=== PATIENT | male | born 1985 | race Caucasian/White ===

== ENCOUNTER 2023-03-04 22:51 | Emergency (ER) | payer OTHER ==
[~2023-03-04 22:51] MED LIST: Iopamidol 300 61% 100 ML VIAL FS ONE
[2023-03-04] MEDS ORDERED: Famotidine/PF 20 mg/2ml Vial ONE (23:24)
[2023-03-04] MEDS ORDERED: Ketorolac Tromethamine 30 MG (1 mL) VIAL ONE (23:24)
[2023-03-04] MEDS ORDERED: Dicyclomine 20 MG TAB ONE (23:27)
[2023-03-04 23:38] LABS: #Eosinphils 0.1 10x3/uL (0.0-0.5); #Monocytes 0.5 10x3/uL (0.0-1.1); #Neutrophils 6.2 10x3/uL (1.5-8.4); %Basophils 0.3 % (0.0-2.0); %Eosinophils 0.7 % (0.0-6.0); %Lymphocytes 21.1 % (18.0-47.0); %Monocytes 5.9 % (0.0-10.0); %Neutrophils 71.7 % (40.0-75.0); Hematocrit 37.4 % (38.8-50.0); Hemoglobin 13.3 g/dL (13.5-17.5); Mean Corpuscular HGB CONC 35.6 g/dL (32.0-36.0); Mean Corpuscular Hemoglobin 31.6 pg (27.0-33.0); Mean Corpuscular Volume 88.8 fl (81.2-95.1); Mean Platelet Volume 10.7 fl (7.4-10.4); Platelet Count 220 10x3/uL (150-450); RBC Distribution Width 12.5 % (11.5-14.5); Red Blood Cell (RBC) Count 4.21 10x6/uL (4.32-5.72); White Blood Cell (WBC) Count 8.7 10x3/uL (3.5-10.5)
[2023-03-04 23:51] LABS: ALT (SGPT) 14 U/L (8-55); AST (SGOT) 15 U/L (5-34); Alkaline Phosphatase 71 U/L (40-110); Anion Gap 11 mmol/L (10-20); BUN (Urea Nitrogen) 14 mg/dL (8.9-20.6); Bilirubin, Total 0.5 mg/dL (0.2-1.2); Calc. Creatinine Clearance 0 mL/min (70-130); Calcium 9.1 mg/dL (7.8-10.44); Carbon Dioxide 27 mmol/L (22-29); Chloride 107 mmol/L (98-107); Estimated GFR 100; Globulin 3.2 g/dL (2.4-3.5); Glucose 98 mg/dL (70-105); Lipase 30 U/L (8-78); Potassium 3.9 mmol/L (3.5-5.1); Protein, Total 7.2 g/dL (6.0-8.3); Sodium 141 mmol/L (136-145)
[2023-03-04 23:58] LABS: Bilirubin Neg (Negative); Blood, Urine 250 (Negative); Clarity Clear (Clear); Glucose, Urine (Dipstick) Normal (Negative); Ketone, Urine Negative (Negative); Leukocyte Negative (Negative); Nitrite Negative (Negative); Protein, Urine (Dipstick) 30 mg/dl (Neg-Trace); Urobilinogen Normal mg/dL (Less than 2)
[2023-03-05 00:21] LABS: RBC/HPF 0-3 HPF (0-3)
[2023-03-05 00:22] LABS: Bacteria/HPF None Seen HPF (None Seen); CAUTI Indications for Culture Pelvic or flank pain; Squamous Epithelial 0-3 HPF (0-3); WBC/HPF 0-3 HPF (0-3)
[2023-03-05 00:23] LABS: Yeast-Budding 1+ HPF (None Seen)
[2023-03-05 00:25] LABS: Urine Culture Reflex No No
== END 2023-03-05 01:39 ==
LOC: CSHERS 22:51 → EEVIPCON 22:51 → CSHERS 03-05 01:39
DX: R10.84 Generalized abdominal pain (principal); R11.2 Nausea with vomiting, unspecified; B37.9 Candidiasis, unspecified
CPT/HCPCS: 74177; 80053; 81001; 83690; 85025; 96374; 96375; J1885; Q9967; S0028